=== PATIENT | male | born 1965 | race Caucasian/White ===

== ENCOUNTER 2017-12-20 10:19 | Day surgery (SDC) | payer BC, OTHER ==
[~2017-12-20 10:19] MED LIST: BESIFLOXACIN HCL 0.6% OPH SUSP 5 ML BOTTLE OS PRN; BUPIVACAINE HCL 0.75% INJ/PF (7.5 MG/1 ML) 10 ML SDV OS PRN; CHONDR SU A NA/HYALUR INTRAOC KIT (SURGICARE) ONE; EPINEPHRINE INJ/PF 1 MG/1 ML AMPULE ONE; KETOROLAC TROMETHAMINE 0.45% 4 DROP/0.4 ML DROPERETTE OS PRN; LIDOCAINE 4% INJ/PF (40 MG/ML) 5 ML AMPUL OS PRN
[2017-12-20] MEDS: TROPICAMIDE 1% OPH SOLN 3 ML OS PRN ×3 (10:49→11:18)
[2017-12-20] MEDS: CYCLOPENTOLATE 0.2%/PHENYLEPHRINE 1% OPH SOLN 2 ML OS PRN ×3 (10:49→11:18)
[2017-12-20] MEDS: TETRACAINE HCL 0.5% OPH SOLN 0.6 ML DROPERETTE OS PRN ×2 (10:51→11:22)
[2017-12-20] MEDS ORDERED: MIDAZOLAM 2 MG/2 ML INJ ONE ×2 (11:21→11:52)
[2017-12-20] MEDS ORDERED: FENTANYL CITRATE INJ/PF 100 MCG/2 ML AMPUL ONE (11:22)
[2017-12-20] MEDS ORDERED: LIDOCAINE 1% INJ-PF (10 MG/ML) 30 ML SDV ONE (11:52)
--- NOTE | 2017-12-20 12:40 | [facility] OPERATIVE REPORT E ---
[facility] Operative Report NAME: LANI TIDWELL AGE: 52Y DATE OF SURGERY: 12/20/2017 ROOM: PREOPERATIVE DIAGNOSIS: CATARACT, LEFT EYE. POSTOPERATIVE DIAGNOSIS: CATARACT, LEFT EYE. PROCEDURE PERFORMED: Phacoemulsification with posterior chamber intraocular lens, left eye. SURGEON: Lilly Ibarra MD ANESTHESIA: Topical with MAC. DESCRIPTION OF PROCEDURE: The patient was brought to the operating room and placed on the operative table. Following tetracaine drops, topical anesthesia was administered. This consisted of instrument wipe pledgets soaked in a solution of 4% Xylocaine mixed with 0.75% Marcaine in a 1:2 ratio. A 2 x 1 cm pledget was placed in the superior fornix. A 1 x 1 cm pledget was placed in the inferior fornix. The eye was patched shut for 5 minutes. The patch was removed. The eye was sterilely prepped and draped in the usual manner. Lid speculum was placed in the eye. The pledgets were removed, 4-0 black silk sutures were placed around the superior and the inferior rectus muscles to be used as traction. A conjunctival peritomy was made at the 10 o'clock position. Hemostasis was obtained with bipolar cautery. A posterior limbal groove was created using a crescent knife and dissected anteriorly towards the cornea. A sharp point blade was used to create a paracentesis site at the 2 o'clock position. A 2.4 mm keratome was used to enter the anterior chamber through the groove. Viscoelastic was injected into the anterior chamber. An anterior capsulotomy was performed using Utrata forceps in a capsulorrhexis fashion. Hydrodissection and hydrodelineation were performed. Phacoemulsification was performed in uwbzjj-oop-iyadvuc technique. A total of 8.24 CDE of total phaco time was used. Following this, the I/A unit was used to remove residual cortex. Viscoelastic was injected into the capsular bag. Intraocular lens Model SN60WF, 18.5 diopters, serial number [id number], was placed in the capsular bag. The I/A unit was used to remove residual viscoelastic. The wound was seen to be watertight under high and low pressure, and no sutures were placed. The intraocular lens was well centered. The pressure was adjusted in the eye to normal pressure. The 4-0 black silk sutures and lid speculum were removed. The eye was shielded after Besivance drops were placed. The patient tolerated the procedure well and was sent to the recovery room in good condition. DICTATING PHYSICIAN: LILLY IBARRA M.D. [id number] PHY#: [id number] ID: [id number] JOB#: [id number] ACCT: [id number] cc:LILLY IBARRA M.D. >
--- NOTE | 2017-12-20 12:41 | [facility] DISCHARGE SUMMARY E ---
[facility] Discharge Summary NAME: LANI TIDWELL AGE: 52Y ADMITTED: 12/20/2017 DISCHARGED: 12/20/2017 HOSPITAL COURSE: The patient is a 52-year-old gentleman who underwent uneventful cataract extraction with intraocular lens implant, left eye, on 12/20/2017. He will be discharged to home. DISCHARGE INSTRUCTIONS: He is instructed to resume preoperative medications; to take Tylenol as needed for discomfort; to keep his eye shielded; to use Durezol, ketorolac and Besivance at 3:00 p.m. and 8:00 p.m.; and to follow up in my office in 1 day. DICTATING PHYSICIAN: PAUL IBARRA M.D. [id number] PHY#: [id number] ID: [id number] JOB#: [id number] ACCT: [id number] cc:PAUL IBARRA M.D. >
== END 2017-12-20 12:42 | disposition home or self-care (01) ==
LOC: SC 10:19
PROVIDERS: ATTEND Ophthalmology
PROC: 08RK3JZ Replacement of Left Lens with Synthetic Substitute, Percutaneous Approach (ICD-10-PCS; principal; 2017-12-20 12:00)
DX: H25.813 Combined forms of age-related cataract, bilateral (principal); M19.90 Unspecified osteoarthritis, unspecified site; E78.00 Pure hypercholesterolemia, unspecified; K21.9 Gastro-esophageal reflux disease without esophagitis; G47.30 Sleep apnea, unspecified; Z79.899 Other long term (current) drug therapy; Z87.891 Personal history of nicotine dependence; Z79.1 Long term (current) use of non-steroidal anti-inflammatories (NSAID)
CPT/HCPCS: 66984; V2632; J2250; J3490 ×4; J0171; J3010; 142

== ENCOUNTER 2018-01-12 09:26 | Day surgery (SDC) | payer OTHER ==
[~2018-01-12 09:26] MED LIST changes: -BESIFLOXACIN HCL 0.6% OPH SUSP 5 ML BOTTLE OS PRN; +BUPIVACAINE HCL 0.75% INJ/PF (7.5 MG/1 ML) 10 ML SDV OD PRN; -BUPIVACAINE HCL 0.75% INJ/PF (7.5 MG/1 ML) 10 ML SDV OS PRN; +KETOROLAC TROMETHAMINE 0.45% 4 DROP/0.4 ML DROPERETTE OD PRN; -KETOROLAC TROMETHAMINE 0.45% 4 DROP/0.4 ML DROPERETTE OS PRN; +LIDOCAINE 1% INJ-PF (10 MG/ML) 30 ML SDV ONE; +LIDOCAINE 4% INJ/PF (40 MG/ML) 5 ML AMPUL OD PRN; -LIDOCAINE 4% INJ/PF (40 MG/ML) 5 ML AMPUL OS PRN
[2018-01-12] MEDS: CYCLOPENTOLATE 0.2%/PHENYLEPHRINE 1% OPH SOLN 2 ML OD PRN ×3 (09:57→10:29)
[2018-01-12] MEDS: TROPICAMIDE 1% OPH SOLN 3 ML OD PRN ×3 (09:57→10:29)
[2018-01-12] MEDS: BESIFLOXACIN HCL 0.6% OPH SUSP 5 ML BOTTLE OD PRN ×3 (09:58→10:59)
[2018-01-12] MEDS: TETRACAINE HCL 0.5% OPH SOLN 0.6 ML DROPERETTE OD PRN ×2 (09:59→10:30)
[2018-01-12] MEDS ORDERED: MIDAZOLAM 2 MG/2 ML INJ ONE (10:34)
[2018-01-12] MEDS ORDERED: FENTANYL CITRATE INJ/PF 100 MCG/2 ML AMPUL ONE (10:34)
--- NOTE | 2018-01-12 11:30 | [facility] OPERATIVE REPORT E ---
[facility] Operative Report NAME: LANI TIDWELL AGE: 52Y DATE OF SURGERY: 01/12/2018 ROOM: PREOPERATIVE DIAGNOSIS: CATARACT, RIGHT EYE. POSTOPERATIVE DIAGNOSIS: CATARACT, RIGHT EYE. OPERATION: PHACOEMULSIFICATION WITH POSTERIOR CHAMBER INTRAOCULAR LENS, RIGHT EYE. SURGEON: PAUL IBARRA M.D. ANESTHESIA: Topical with MAC. TISSUE REMOVED OR ALTERED: INDICATIONS FOR SURGERY: Difficulty driving at night due to glare. Best corrected visual acuity 20/40. PROCEDURE: The patient was brought to the Operating Room and placed on the operative table. Following tetracaine drops, topical anesthesia was administered. This consisted of instrument wipe pledgets soaked in a solution of 4% Xylocaine mixed with 0.75% Marcaine in a 1:2 ratio. A 2 x 1 cm pledget was placed in the superior fornix. A 1 x 1 cm pledget was placed in the inferior fornix. The eye was patched shut for 5 minutes. The patch was removed. The eye was sterilely prepped and draped in the usual manner. Lid speculum was placed in the eye. The pledgets were removed. 4-0 black silk sutures were placed around the superior and the inferior rectus muscles to be used as traction. A conjunctival peritomy was made at the 10 o'clock position. Hemostasis was obtained with bipolar cautery. A posterior limbal groove was created using a crescent knife and dissected anteriorly towards the cornea. A sharp point blade was used to create a paracentesis site at the 2 o'clock position. A 2.4 mm keratome was used to enter the anterior chamber through the groove. Viscoelastic was injected into the anterior chamber. An anterior capsulotomy was performed using Utrata forceps in a capsulorrhexis fashion. Hydrodissection and hydrodelineation were performed. Phacoemulsification was performed in vxmxwm-xme-ehmlcry technique. A total of 43 seconds phaco time was used. Following this, the I/A unit was used to remove residual cortex. Viscoelastic was injected into the capsular bag. Intraocular lens model SN60WF, 20.0 diopters, serial number [id number] was placed in the capsular bag. The I/A unit was used to remove residual viscoelastic. The wound was seen to be watertight under high and low pressure, and no sutures were placed. The intraocular lens was well centered. The pressure was adjusted in the eye to normal pressure. The 4-0 black silk sutures and lid speculum were removed. The eye was shielded after Besivance drops were placed. The patient tolerated the procedure well and was sent to the Recovery Room in good condition. DICTATING PHYSICIAN: PAUL IBARRA M.D. DICTATING PHYSICIAN: PAUL IBARRA M.D. [id number] PHY#: [id number] ID: [id number] JOB#: [id number] ACCT: [id number] cc:PAUL IBARRA M.D. > MTDD
--- NOTE | 2018-01-12 11:34 | [facility] DISCHARGE SUMMARY E ---
[facility] Discharge Summary NAME: LANI TIDWELL AGE: 52Y ADMITTED: 01/12/2018 DISCHARGED: FINAL DIAGNOSIS: CATARACT, RIGHT EYE HOSPITAL COURSE: The patient is a 52-year-old gentleman who underwent uneventful cataract extraction with intraocular lens implant, right eye, on 01/12/18. He will be discharged to home. He is instructed to resume preoperative medications, take Tylenol as needed for discomfort. He has is eye shielded, to use Besivance, Durezol and Ilevro at 3 p.m. and 8 p.m. To follow up in my office in 1 day. DICTATING PHYSICIAN: PAUL IBARRA M.D. [id number] PHY#: [id number] ID: [id number] JOB#: [id number] ACCT: [id number] cc:PAUL IBARRA M.D. >
== END 2018-01-12 11:40 | disposition home or self-care (01) ==
LOC: SC 09:26
PROVIDERS: ATTEND Ophthalmology
DX: H25.811 Combined forms of age-related cataract, right eye (principal); Z96.1 Presence of intraocular lens; H00.15 Chalazion left lower eyelid; M19.90 Unspecified osteoarthritis, unspecified site; K21.9 Gastro-esophageal reflux disease without esophagitis; Z79.899 Other long term (current) drug therapy
CPT/HCPCS: 66984; V2632; J2250; J3490 ×4; J0171; J3010; 142